=== PATIENT | female | born 1990 | race Caucasian/White ===

== ENCOUNTER 2021-04-11 15:02 | Inpatient (IN) | payer BC ==
[~2021-04-11 15:02] MED LIST: Bupivacaine 0.25% HCL 30 ML VIAL ONE
[2021-04-11] MEDS ORDERED: Carboprost 250 MCG/ML AMP IM PRN (15:54)
[2021-04-11] MEDS ORDERED: Acetaminophen 500 MG TAB PO PRN (15:54)
[2021-04-11] MEDS ORDERED: hydrALAZINE 20 MG/ML VIAL SLOW IVP PRN (15:54)
[2021-04-11] MEDS ORDERED: Methylergonovine 0.2 MG/ML VIAL IM PRN (15:54)
[2021-04-11] MEDS ORDERED: Ibuprofen 800 MG TAB PO PRN (15:54)
[2021-04-11] MEDS ORDERED: Diphenoxylate HCl/Atropine Tablet PO PRN (15:54)
[2021-04-11] MEDS ORDERED: Promethazine HCl 25 MG/ML VIAL IM PRN ×2 (15:54→17:55)
[2021-04-11] MEDS ORDERED: HYDROcodone/Acetaminophen 5/325 mg Tablet PO PRN (15:54)
[2021-04-11] MEDS ORDERED: Ondansetron PF 4 MG/2 ML Vial IVP PRN ×2 (15:54→17:55)
[2021-04-11] MEDS ORDERED: Misoprostol 200 MCG TAB PR PRN (15:54)
[2021-04-11] MEDS ORDERED: Lidocaine 1% (PF) 30 ML VIAL SC PRN (15:54)
[2021-04-11] MEDS ORDERED: Butorphanol Tartrate 1 MG/ML VIAL SLOW IVP PRN (15:54)
[2021-04-11] MEDS ORDERED: NS w/ Oxytocin 30 units 500 ML IV SCH (16:00)
[2021-04-11 16:46] LABS: Mean Corpuscular HGB CONC 31.2 g/dL (32.0-36.0); Mean Corpuscular Hemoglobin 25.8 pg (27.0-33.0); Mean Corpuscular Volume 82.9 fl (81.6-98.3); Mean Platelet Volume 10.2 fl (7.4-10.4); Platelet Count 355 10x3/uL (150-450); RBC Distribution Width 15.3 % (11.5-14.5); Red Blood Cell (RBC) Count 4.26 10x6/uL (3.90-5.03); White Blood Cell (WBC) Count 16.8 10x3/uL (3.5-10.5)
[2021-04-11] MEDS: Lactated Ringer's 1,000 ML IV SCH ×2 (17:06→17:51)
[2021-04-11 17:19] LABS: Hep B Surf Ag Non-Reactive S/CO (NonReactive); Syphilis Antibody Nonreactive (Nonreactive); Syphilis Antibody Index 0.03 S/CO (<1.00 Non-Reactive)
[2021-04-11 17:22] LABS: HBSAg Index 0.22 S/CO (0-0.99)
[2021-04-11] MEDS ORDERED: Fentanyl 2 mcg/Bup 0.1% Cadd 100 ML ONE (17:23)
[2021-04-11] MEDS ORDERED: ePHEDrine Sulfate 50 MG/10 ML VIAL SLOW IVP PRN (17:55)
[2021-04-11] MEDS ORDERED: Hydrocerin (Eucerin) Cream 120 gm Jar TOP PRN (17:55)
[2021-04-11] MEDS ORDERED: Naloxone HCl 0.4 mg/ml Vial IVP PRN ×2 (17:55)
[2021-04-11] MEDS ORDERED: Acetaminophen 325 MG TAB PO PRN (17:55)
[2021-04-11] MEDS ORDERED: diphenhydrAMINE 50 MG/ML VIAL IVP PRN (17:55)
[2021-04-11] MEDS ORDERED: Lactated Ringer's 500 ML IV PRN (17:55)
[2021-04-11] MEDS ORDERED: Communication Order-Pharmacy FS SCH (18:00)
[2021-04-11] MEDS ORDERED: Fentanyl 2 mcg/Bupivacaine 0.1% Cassette 100 ML EPIDURAL SCH (18:00)
[2021-04-12 01:08] LABS: SARS-CoV-2 NAA Rapid Test Not Detected (NotDetected)
[2021-04-12 05:45] VITALS: BMI 29.5
[2021-04-12] MEDS ORDERED: Lanolin Ointment 7 GM TUBE TOP PRN (08:03)
[2021-04-12] MEDS ORDERED: Boostrix 0.5 ML (Tdap) VIAL IM ONE (08:03)
[2021-04-12] MEDS ORDERED: Misoprostol 200 MCG TAB VAG PRN (08:03)
[2021-04-12] MEDS ORDERED: Bisacodyl 10 MG SUPP PR PRN (08:03)
[2021-04-12] MEDS ORDERED: hydrALAZINE 20 MG/ML VIAL SLOW IVP PRN (08:03)
[2021-04-12] MEDS ORDERED: Milk Of Magnesia 30 ML UDCUP PO PRN (08:03)
[2021-04-12] MEDS ORDERED: NS w/ Oxytocin 30 units 500 ML IV SCH (08:03)
[2021-04-12] MEDS ORDERED: Benzocaine-Menthol 82.5 ML CAN TOP PRN (08:03)
[2021-04-12] MEDS ORDERED: HYDROcodone/Acetaminophen 5/325 mg Tablet PO PRN ×2 (08:03)
[2021-04-12] MEDS ORDERED: Ferrous Sulfate 325 MG TAB PO SCH (08:30)
[2021-04-12] MEDS: Prenatal Vitamin 1 TAB PO SCH (09:34)
[2021-04-12] MEDS: Docusate 100 MG CAP PO SCH ×2 (09:34→21:18)
[2021-04-12] MEDS: Lactated Ringer's 1,000 ML IV SCH (09:36)
[2021-04-12] MEDS: Ibuprofen 800 MG TAB PO SCH ×2 (13:32→21:19)
[2021-04-12] MEDS: Ferrous Sulfate 325 MG TAB PO SCH (15:50)
[2021-04-13] MEDS: Ibuprofen 800 MG TAB PO SCH ×3 (06:03→21:33)
[2021-04-13] MEDS: Ferrous Sulfate 325 MG TAB PO SCH ×2 (08:35→17:24)
[2021-04-13] MEDS: Docusate 100 MG CAP PO SCH ×2 (09:55→21:32)
[2021-04-13] MEDS: Prenatal Vitamin 1 TAB PO SCH (09:55)
[2021-04-14] MEDS: Ibuprofen 800 MG TAB PO SCH ×2 (05:43→14:43)
[2021-04-14 07:45] VITALS: BP 115/61; TEMP 97.9
[2021-04-14] MEDS: Ferrous Sulfate 325 MG TAB PO SCH (08:54)
[2021-04-14] MEDS: Prenatal Vitamin 1 TAB PO SCH (09:41)
[2021-04-14] MEDS: Docusate 100 MG CAP PO SCH (09:41)
== END 2021-04-14 15:35 | disposition home or self-care (01) | DRG 806 ==
LOC: CSHLD/OP 15:02 → CSHLD 17:35 → CSHPP 04-12 08:00
PROVIDERS: ADMIT Obstetrics & Gynecology; ATTEND Obstetrics & Gynecology
PROC: 10E0XZZ Delivery of Products of Conception, External Approach (ICD-10-PCS; principal; 2021-04-12)
PROC: 0UQGXZZ Repair Vagina, External Approach (ICD-10-PCS; 2021-04-12)
DX: O32.6XX0 Maternal care for compound presentation, not applicable or unspecified (principal); O71.4 Obstetric high vaginal laceration alone; Z37.0 Single live birth; Z3A.41 41 weeks gestation of pregnancy; Z20.822 Contact with and (suspected) exposure to COVID-19
CPT/HCPCS: 85027; 86780; 86850; 86900; 86901; 87340; J2590; J7120; S0020; U0002; U0003; U0005

== ENCOUNTER 2023-10-21 13:56 | Outpatient (CLI) | payer BC | END 2023-10-21 13:57 | disposition home or self-care (01) | LOC: CSHMAMMO 13:56 | PROVIDERS: ATTEND Advanced Practice Midwife | DX: N64.4 Mastodynia (principal) | CPT/HCPCS: 77066; G0279 ==